=== PATIENT | female | born 1990 | race African-American/Black ===

== ENCOUNTER 2021-03-17 20:12 | Emergency (ER) | payer MEDICARE ==
[~2021-03-17] VITALS: Ht 175.3 cm; Wt 123.8 kg
[2021-03-17] MEDS ORDERED: METOCLOPRAMIDE HCL 10 MG/2ML VIAL IV ONE (21:00)
[2021-03-17] MEDS ORDERED: DEXAMETHASONE SOD PHOS INJ 4 MG/ML SDV IV ONE (21:00)
[2021-03-17] MEDS ORDERED: DIPHENHYDRAMINE HCL INJ 50 MG/ML VIAL IV ONE (21:00)
[2021-03-17] MEDS ORDERED: SODIUM CHLORIDE 0.9% 1000ML 1,000 ML IV SCH (21:00)
[2021-03-17] MEDS ORDERED: METOCLOPRAMIDE HCL 10 MG/2ML VIAL ONE (21:31)
[2021-03-17] MEDS ORDERED: DEXAMETHASONE SOD PHOS INJ 4 MG/ML SDV ONE (21:31)
[2021-03-17] MEDS ORDERED: SODIUM CHLORIDE 0.9% 1000ML 1,000 ML ONE (21:32)
[2021-03-17] MEDS ORDERED: DIPHENHYDRAMINE HCL INJ 50 MG/ML VIAL ONE (21:32)
[2021-03-17 22:06] VITALS: BP 137/83
[2021-03-17] MEDS ORDERED: FIORICET-COD 51 EACH PO (22:08)
[2021-03-17] MEDS ORDERED: IBUPROFEN600 MG PO (22:09)
== END 2021-03-17 22:25 | disposition home or self-care (01) ==
LOC: FSED 20:48
DX: G43.109 Migraine with aura, not intractable, without status migrainosus (principal); F41.9 Anxiety disorder, unspecified; F43.9 Reaction to severe stress, unspecified; R03.0 Elevated blood-pressure reading, without diagnosis of hypertension
CPT/HCPCS: 70450; 80053; 81025; 85025; 96374; 96375; 96376; 99284; J1100; J1200; J2765; J7030

== ENCOUNTER 2021-09-23 10:18 | Emergency (ER) | payer SELFPAY ==
[~2021-09-23] VITALS: Ht 175.3 cm; Wt 122.5 kg
[~2021-09-23 10:18] MED LIST: FIORICET-COD 51 EACH PO; IBUPROFEN600 MG PO
== END 2021-09-23 12:16 | disposition home or self-care (01) ==
LOC: FSED 11:03
DX: R03.0 Elevated blood-pressure reading, without diagnosis of hypertension (principal); F43.9 Reaction to severe stress, unspecified; R51.9 Headache, unspecified; E66.9 Obesity, unspecified
CPT/HCPCS: 71046; 80053; 81003; 81025; 82553; 84484; 85025; 93005; 99284